=== PATIENT | male | born 1960 | race Caucasian/White ===

== ENCOUNTER 2024-08-29 06:29 | Day surgery (SDC) | payer OTHER, SELFPAY ==
--- OUTSIDE RECORDS SUMMARY | 2024-08-11 11:32 | XMS_ITS | Data Portability ---
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 Name Role Phone KATJA ELLIS Primary Care Provider JEANETTE DASH Prepper ÁLVARO BENITEZ Lute Packer Or Applier Assessment Encounter Date Assessment Date Assessment LastModified by Organization Details LastModified Time 12/28/2020 12/28/2020 Type 2 diabetes mellitus with peripheral neuropathy, Resolved ulcer left foot [email or web address] Not available 12/28/2020 09:18:02 08/02/2024 08/02/2024 Type 2 diabetes mellitus with peripheral neuropathy, Resolved ulcer right foot [email or web address] Not available 08/02/2024 10:04:13 Plan of Treatment Reminders Order Date Submit Date Provider Last Modified By Organization Details Last Modified Time Details Appointments LAB Follow-Up 2024 08:05A M [facility] Lab Not available Not available Not available Medical Managemen t 15 2024 09:30A M Katja Ellis MD Not available Not available Not available Wellness Visit 30 2025 03:00P M Katja Ellis MD Not available Not available Not available Lab HbA1c (hemoglob in A1c), blood 2024 025 [facility], [address] [place] [address], [id number], 07/20/2024 10:25:59 lipid panel, serum 2024 025 [facility], [address] [place] [address], [id number], 07/20/2024 12:12:57 BMP, serum or plasma 2024 025 [facility], [address] [facility], [place], [address], 07/20/2024 12:12:56 Referral None recorded. Procedures colonosco py procedure (PROC) [email or web address] [facility], [address] [place], [address], 03/26/2022 16:58:32 Surgeries None recorded. Imaging XR, chest 2022 023 [facility] (Imaging), [address] , [place], [address], 03/26/2022 16:57:49 exercise stress test - 6'1 , 254lbs, no pacer, pt cleared to hold Atenolol REYNOSO, diabetic 2022 023 [email or web address] Not available 03/28/2022 11:09:14 US, echocardi ogram - 6'1 , 254lbs, no pacer REYNOSO , Diabetic 2022 023 LILLY Not available 11/02/2022 14:27:52 Medication Orders Trulicity 3 mg/0.5 mL subcutane ous pen injector 2024 025 [facility]/Pharmacy #[id number], [address] [place], [address], 07/27/2024 11:19:59 Trulicity 4.5 mg/0.5 mL subcutane ous pen injector 2024 025 [facility]/Pharmacy #[id number], [address] [place] [address], [address], [address], 07/27/2024 11:19:58 Trulicity 0.75 mg/0.5 mL subcutane ous pen injector 2024 025 [facility]/Pharmacy #[id number], [address] [place], [address], 05/17/2024 16:25:28 atorvasta tin 40 mg tablet 2024 025 LILLY [facility], [address], [address], [place], [place], [id number], 04/20/2024 08:31:45 Humalog Mix 75-25 KwikPen U-100 insulin 100 unit/mL subcutane ous pen 2024 025 LILLY [facility], [address], [address], [place], [place], [id number], 04/20/2024 08:31:44 metformin 500 mg tablet 2024 025 LILLY [facility], [address], [address], [place], [place], [id number], 04/20/2024 08:31:46 atenolol 50 mg tablet 2024 025 SOMERS [facility], [address], [address], [place], [place], [id number], 04/20/2024 08:31:44 Humalog Mix 75-25 KwikPen U-100 insulin 100 unit/mL subcutane ous pen 2022 023 SOMERS [facility], [address], [address], [place], [place], [id number], 03/26/2022 15:42:51 Trulicity 1.5 mg/0.5 mL subcutane ous pen injector 2022 023 [facility], [address], [address], [place], [place], [id number], 04/20/2024 08:12:06 Patient TargetsNo targets recorded. Patient Instructions Encounter Date Encounter Id Patient Instructions Last Modified By Organization Details Last Modified Time 12/28/2020 [id number] Patient to continue to monitor for recurrence of ulcer and return as necessary. [email or web address] Not available 12/28/2020 09:19:30 03/26/2022 [id number] Well Visit 50 to 65: Care Instructions frotino Not available 03/26/2022 15:42:48 Prostate Cancer Screening using PSA was discussed. The U.S. Preventive Services Task Force advises not to make a PSA test a part of the standard exam for men ages 55-69. Instead they recommend the uncertainties about the test be discussed and ordered only if a patient still wants it. Over their lifetimes as many as 50% or more of men will develop prostate cancer but only 2% of men will of prostate cancer. For men who chose to be screened for prostate cancer if 1000 men are screened with a psa test over a 15 year period there might be 1-2 deaths prevented however 235 men will have a biopsy with risk of infection, bleeding and Pain, 100 men will have their prostate removed by surgery or radiation treatments and 60-70 of those will suffer incontinence or impotence. There is also the risk of anesthesia or radiation complications. For men over 70 prostate cancer screening offered no benefit and risked pain, worry, expense and possibly shorter life expectancy. Not available 03/26/2022 10:29:28 08/02/2024 [id number] Patient to contact the office if symptoms of swelling or drainage are experienced. [email or web address] Not available 08/02/2024 10:05:07 Reason for Referral None Reported. Results Created Date Observation Date Name Description Value Unit Range Abnormal Flag Note LastModifiedBy Organization Detail LastModifiedTime 12/06/19 21 12/05/2020 HGB A1C hemoglobin A1C 9.4 % 4.8-6. 0 high Goal: <7% in Patie nts with Diabe kg An A1c betwe en 5.7-6 .4% is ident ified as pre-d iabet es and sugge sts risk for progr essio n to diabe kg Two a1c value s of 6.5% or highe r is consi stent with a diagn osis of diabe kg but may need furth er confi rmati on Not Available [address], [place], [address], 12/05/2020 09:52:06 10/20/20 21 12/05/2020 HGB A1C estimated average glucose 223.1 mg/dL Not Available [address], [address], 12/05/2020 09:52:06 12/06/19 21 12/05/2020 BASIC METAB OLIC PANEL glucose 229 mg/dL 70-100 high Not Available [address], [address], 12/05/2020 14:15:13 12/06/19 21 12/05/2020 BASIC METAB OLIC PANEL BUN 14 mg/dL 7-18 Not Available [address], [address], 12/05/2020 14:15:13 12/06/19 21 12/05/2020 BASIC METAB OLIC PANEL creatinine 1.1 mg/dL 0.8-1. 3 Not Available [address], [address], 12/05/2020 14:15:13 12/06/19 21 12/05/2020 BASIC METAB OLIC PANEL B/C 12.7 ratio Not Available [address], [address], 12/05/2020 14:15:13 12/06/19 21 12/05/2020 BASIC METAB OLIC PANEL GFR 72.8 mL/mi n Recom octavio d GFR by the Natio nal Kidne y Found ation >60 mL/mi n/1.7 3m2 - Darlyn l <60 mL/mi n/1.7 3m2 - Chron ic Kidne y Disea se <15 mL/mi n/1.7 3m2 - Kidne y Failu re Not Available [address], [address], 12/05/2020 14:15:13 12/06/19 21 12/05/2020 BASIC METAB OLIC PANEL sodium 139 mmol/ L 136-14 5 Not Available [address], [address], 12/05/2020 14:15:13 12/06/19 21 12/05/2020 BASIC METAB OLIC PANEL potassium 4.5 mmol/ L 3.5-5. 1 Not Available [address], [address], 12/05/2020 14:15:13 12/06/19 21 12/05/2020 BASIC METAB OLIC PANEL chloride 102 mmol/ L 96-107 Not Available [address], [address], 12/05/2020 14:15:13 12/06/19 21 12/05/2020 BASIC METAB OLIC PANEL anion gap 14.2 5.0-15 .0 Not Available [address], [address], 12/05/2020 14:15:13 12/06/19 21 12/05/2020 BASIC METAB OLIC PANEL CO2 23 mmol/ L 21-32 Not Available [address], [address], 12/05/2020 14:15:13 12/06/19 21 12/05/2020 BASIC METAB OLIC PANEL calcium 9.0 mg/dL 8.5-10 .3 Not Available [address], [address], 12/05/2020 14:15:13 12/06/19 21 12/05/2020 LIPID PANEL cholesterol 138 mg/dL <200 mg/dl Meka able 200-2 39 mg/dl Borde rline High >240 mg/dl High Not Available [address], [address], 12/05/2020 14:15:14 12/06/19 21 12/05/2020 LIPID PANEL triglyceride s 199 mg/dL <150 mg/dL Darlyn l 150-1 99 mg/dL Borde rline High 200-4 99 mg/dL High >500 mg/dL Very High Not Available [address], [address], 12/05/2020 14:15:14 12/06/19 21 12/05/2020 LIPID PANEL direct HDL 36 mg/dL <40 mg/dl - Major Risk for CHD >60 mg/dl - Negat paco Risk for CHD Not Available [address], [address], 12/05/2020 14:15:14 12/06/19 21 12/05/2020 LDL - CALCU LATED LDL - calculated 62.2 RISK CATEG ORY LDL GOAL _ CHD or CHD Risk Equiv alent s <100 mg/dl (10-y ear risk >20%) 2+ Risk Facto rs <130 mg/dl (10-y ear risk <= 20%) 0-1 Risk Facto r <160 mg[facility] with 0-1 risk facto r have a 10 year risk <10%, thus 10 year risk asses ment in peopl e with 0-1 risk facto r is not neces lila. Not Available [address], [address], 12/05/2020 14:15:15 03/19/19 23 03/19/2022 HGB A1C hemoglobin A1C 11.5 % 4.8-6. 0 high Goal: <7% in Patie nts with Diabe kg An A1c betwe en 5.7-6 .4% is ident ified as pre-d iabet es and sugge sts risk for progr essio n to diabe kg Two a1c value s of 6.5% or highe r is consi stent with a diagn osis of diabe kg but may need furth er confi rmati on Not Available [address], [address], 03/19/2022 09:20:54 03/19/1903/19/2022 HGB A1C estimated average glucose 283.4 mg/dL Not Available [address], [address], 03/19/2022 09:20:54 03/19/19 23 03/19/2022 MICRO ALBUM IN/CR EATIN INE RATIO PANEL , URINE microalbumin 112.1 mg/L 1.3-20 .0 high VERD= Verif ied by Dilut ion. Not Available [address], [address], 03/19/2022 11:59:00 03/19/19 23 03/19/2022 MICRO ALBUM IN/CR EATIN INE RATIO PANEL , URINE creatinine urine 250.8 mg/dL 30.0-1 25.0 high Not Available [address], [address], 03/19/2022 11:59:00 03/19/19 23 03/19/2022 MICRO ALBUM IN/CR EATIN INE RATIO PANEL , URINE microalb/cre at ratio 44.7 mg/g_ creat 0.0-29 .0 high Not Available [address], [address], 03/19/2022 11:59:00 03/19/19 23 03/19/2022 BASIC METAB OLIC PANEL glucose 235 mg/dL 70-100 high Not Available [address], [address], 03/19/2022 12:15:15 03/19/19 23 03/19/2022 BASIC METAB OLIC PANEL BUN 21 mg/dL 7-18 high Not Available [address], [address], 03/19/2022 12:15:15 03/19/19 23 03/19/2022 BASIC METAB OLIC PANEL creatinine 1.2 mg/dL 0.8-1. 3 Not Available [address], [address], 03/19/2022 12:15:15 03/19/19 23 03/19/2022 BASIC METAB OLIC PANEL B/C 17.5 ratio Not Available [address], [address], 03/19/2022 12:15:15 03/19/19 23 03/19/2022 BASIC METAB OLIC PANEL GFR >=60ML /MIN mL/mi n normal >=60m L/min - Darlyn l or midly reduc ed <60mL /min- Decre ased kidne y funct ion <15mL /min - Kidne y failu re [facility] calcu lates estim ated Glome rular Filtr ation Rate (eGFR ) using the Chron ic Kidne y Disea se Epide miolo gy Colla borat ion (CKD- EPI) Equat ion (Ciara hurd et. al 2020) as recom octavio d by the Natio nal Kidne y Found ation . eGFR is based on age, serum creat inine , and sex. CKD-E PI does not calcu late eGFR by race, does not apply to child ector (age <18 years ), and shoul d not be used in pregn gloria. Not Available [address], [address], 03/19/2022 12:15:15 03/19/1903/19/2022 BASIC METAB OLIC PANEL sodium 136 mmol/ L 136-14 5 Not Available [address], [address], 03/19/2022 12:15:15 03/19/19 23 03/19/2022 BASIC METAB OLIC PANEL potassium 4.3 mmol/ L 3.5-5. 1 Not Available [address], [address], 03/19/2022 12:15:15 03/19/19 23 03/19/2022 BASIC METAB OLIC PANEL chloride 101 mmol/ L 96-107 Not Available [address], [address], 03/19/2022 12:15:15 03/19/19 23 03/19/2022 BASIC METAB OLIC PANEL anion gap 7.0 5.0-15 .0 Not Available [address], [address], 03/19/2022 12:15:15 03/19/19 23 03/19/2022 BASIC METAB OLIC PANEL CO2 28 mmol/ L 21-32 Not Available [address], [address], 03/19/2022 12:15:15 03/19/19 23 03/19/2022 BASIC METAB OLIC PANEL calcium 9.8 mg/dL 8.5-10 .3 Not Available [address], [address], 03/19/2022 12:15:15 03/19/19 23 03/19/2022 LIPID PANEL cholesterol 240 mg/dL <200 mg/dl Meka able 200-2 39 mg/dl Borde rline High >240 mg/dl High Not Available [address], [address], 03/19/2022 12:15:16 03/19/1903/19/2022 LIPID PANEL triglyceride s 528 mg/dL high LIPS= Speci men Sligh tly Lipem ic. Chem Resul ts may be effec tad. <150 mg/dL Darlyn l 150-1 99 mg/dL Borde rline High 200-4 99 mg/dL High >500 mg/dL Very High Not Available [address], [address], 03/19/2022 12:15:16 03/19/19 23 03/19/2022 LIPID PANEL direct HDL 38 mg/dL <40 mg/dl - Major Risk for CHD >60 mg/dl - Negat paco Risk for CHD Not Available [address], [address], 03/19/2022 12:15:16 03/19/19 23 03/19/2022 DIREC T LDL direct LDL 102 mg/dL RISK CATEG ORY LDL GOAL _ CHD or CHD Risk Equiv alent s <100 mg/dl (10-y ear risk >20%) 2+ Risk Facto rs <130 mg/dl (10-y ear risk <= 20%) 0-1 Risk Facto r <160 mg/dl Almo st all peopl e with 0-1 risk facto r have a 10 year risk <10%, thus 10 year risk asses ment in peopl e with 0-1 risk facto r is not necdemetria lila. Not Available [address], [address], 03/19/2022 12:44:20 10/18/19 23 10/17/2022 POC GLU POC glu 199 70 - 100 high Not Available [facility] [address] [place] [address], [address], 10/17/2022 10:15:15 07/21/19 25 07/20/2024 HGB A1C hemoglobin A1C 11.0 % 4.8-6. 0 high Goal: <7% in Patie nts with Diabe kg An A1c betwe en 5.7-6 .4% is ident ified as pre-d iabet es and sugge sts risk for progr essio n to diabe kg Two a1c value s of 6.5% or highe r is consi stent with a diagn osis of diabe kg but may need furth er confi rmati on Not Available [address], [address], 07/20/2024 10:25:59 07/21/19 25 07/20/2024 HGB A1C estimated average glucose 269.0 mg/dL Not Available [address], [address], 07/20/2024 10:25:59 07/21/19 25 07/20/2024 BASIC METAB OLIC PANEL glucose 209 mg/dL 70-100 high Not Available [address], [address], 07/20/2024 12:12:56 07/21/1907/20/2024 BASIC METAB OLIC PANEL BUN 19 mg/dL 7-18 high Not Available [address], [address], 07/20/2024 12:12:56 07/21/1907/20/2024 BASIC METAB OLIC PANEL creatinine 1.1 mg/dL 0.8-1. 3 Not Available [address], [address], 07/20/2024 12:12:56 07/21/1907/20/2024 BASIC METAB OLIC PANEL B/C 17.3 ratio Not Available [address], [address], 07/20/2024 12:12:56 07/21/1907/20/2024 BASIC METAB OLIC PANEL GFR >=60ML /MIN mL/mi n normal >=60m L/min - Darlyn l or midly reduc ed <60mL /min- Decre ased kidne y funct ion <15mL /min - Kidne y failu re [facility] calcu lates estim ated Glome rular Filtr ation Rate (eGFR ) using the Chron ic Kidne y Disea se Epide miolo gy Colla borat ion (CKD- EPI) Equat ion (Ciara r et. al 2020) as recom octavio d by the Natio nal Kidne y Found ation . eGFR is based on age, serum creat inine , and sex. CKD-E PI does not calcu late eGFR by race, does not apply to child ector (age <18 years ), and shoul d not be used in pregn gloria. Not Available [address], [address], 07/20/2024 12:12:56 07/21/1907/20/2024 BASIC METAB OLIC PANEL sodium 138 mmol/ L 136-14 5 Not Available [address], [address], 07/20/2024 12:12:56 07/21/1907/20/2024 BASIC METAB OLIC PANEL potassium 4.5 mmol/ L 3.5-5. 1 Not Available [address], [address], 07/20/2024 12:12:56 07/21/19 25 07/20/2024 BASIC METAB OLIC PANEL chloride 102 mmol/ L 96-107 Not Available [address], [address], 07/20/2024 12:12:56 07/21/1907/20/2024 BASIC METAB OLIC PANEL anion gap 10.4 5.0-15 .0 Not Available [address], [address], 07/20/2024 12:12:56 07/21/1907/20/2024 BASIC METAB OLIC PANEL CO2 26 mmol/ L 21-32 Not Available [address], [address], 07/20/2024 12:12:56 07/21/1907/20/2024 BASIC METAB OLIC PANEL calcium 9.4 mg/dL 8.5-10 .3 Not Available [address], [address], 07/20/2024 12:12:56 07/21/1907/20/2024 LIPID PANEL cholesterol 161 mg/dL <200 mg/dl Meka able 200-2 39 mg/dl Borde rline High >240 mg/dl High Not Available [address], [address], 07/20/2024 12:12:57 07/21/19 25 07/20/2024 LIPID PANEL triglyceride s 228 mg/dL <150 mg/dL Darlyn l 150-1 99 mg/dL Borde rline High 200-4 99 mg/dL High >500 mg/dL Very High Not Available [address], [address], 07/20/2024 12:12:57 07/21/1907/20/2024 LIPID PANEL direct HDL 39 mg/dL <40 mg/dl - Major Risk for CHD >60 mg/dl - Negat paco Risk for CHD Not Available [address], [address], 07/20/2024 12:12:57 07/21/1907/20/2024 LDL - CALCU LATED LDL - calculated 76 RISK CATEG ORY LDL GOAL _ CHD or CHD Risk Equiv alent s <100 mg/dl (10-y ear risk >20%) 2+ Risk Facto rs <130 mg/dl (10-y ear risk <= 20%) 0-1 Risk Facto r <160 mg/dl Almo st all peopl e with 0-1 risk facto r have a 10 year risk <10%, thus 10 year risk asses ment in peopl e with 0-1 risk facto r is not neces lila. Not Available [address], [address], 07/20/2024 12:12:58 03/26/1903/26/2022 XR, chest CLINIC AL HISTOR Y: Dyspne a on exerti on. TECHNI QUE: Fronta l view and latera l view of the chest obtain ed. COMPAR LAURA: None. FINDIN GS: The heart is normal in size and config uratio n.Ther e is no hilar or medias tinal enlarg ement. There is no focal lung consol idatio n or infilt rate. The bony thorax is intact . IMPRES TIANA: No acute diseas e. Readin g Physic sasha: Amaury Fox ms [facility] (Imaging) [address], [place], [address], 03/27/2022 09:09:26 04/09/19 23 04/08/2022 exerc ise stres s test No observ ation record ed. LILLY [facility] [address] [place], [address], 2022 07:17:01 10/30/19 23 04/30/2022 , echoc ardio gram No observ ation record ed. LILLY Tran [facility] - Stat [address] [place], [address], 11/02/2022 14:27:52 Result Notes None recorded. Procedures Surgical History Date Name Laterality Status Provider Name and Address Organization Details Recorded Time 3 Gopi - Colonoscopy completed Nabeel Nguyễn MD [address] [place] [address], [phone], [facility] 10/17/2022 11:17:50 Imaging Results None recorded. Procedure Notes None recorded. Medical Equipment None Reported. Allergies Allergen ID Allergen Name Allergen Category Reaction Reaction Severity Criticality Documentation Date Start Date Code Code System Note Provider Name and Address Organization Details Recorded Time [id number] Zestril medicatio n cough Not available Not available 10/15/2022 2 RxNorm Kiara lee RN [facility], [facility] 3 15:57:53 Medications Name Sig Start Date Stop Date Status Note LastModified by Organization Details LastModified Time amoxicilli n 500 mg capsule 12/10 completed Not Available Not Available Not Available atorvastat in 40 mg tablet 1 tablet every day active Not Available Not Available No t Available metformin 500 mg tablet TAKE 2 TABLETS TWICE A DAY 2024 active Not Available Not Available Not Avai lable triazolam 0.25 mg tablet 07/09 completed not using 03/30/20 -sk,not taking RITA Not Available Not Available Not Available pravastati n 40 mg tablet TAKE 1 TABLET DAILY (STOP GEMFIBRO ZIL) 07/09 completed not using 06/27/20 as Not Available Not Available Not Available ibuprofen 800 mg tablet TAKE 1 TABLET BY MOUTH EVERY 6 TO 8 HOURS WITH FOOD NEEDED 12/10 completed Not Available Not Available Not Available benzonatat e 200 mg capsule TAKE 1 CAPSULE BY MOUTH THREE TIMES A DAY FOR COUGH FOR 7 DAYS 07/27 completed Not Available Not Available Not Available glipizide 10 mg tablet active Not Available Not Available Not Available prednisone 20 mg tablet TAKE 2 TABLETS BY MOUTH EVERY MORNING FOR 3 DAYS 07/27 completed Not Available Not Available Not Available Lantus U-100 Insulin 100 unit/mL subcutaneo us solution INJECT 50 UNITS SUBCUTAN EOUSLY DAILY active Not Available Not Available No t Available penicillin V potassium 500 mg tablet TAKE 1 TABLET BY MOUTH 4 TIMES A DAY 12/10 completed Not Available Not Available Not Available acetaminop hen 300 mg-codeine 30 mg tablet 03/30 completed Not Available Not Available Not Available prochlorpe razine maleate 10 mg tablet active for colo Not Available Not Available Not Available ciprofloxa magui 500 mg tablet Take 1 tablet every 12 hours by oral route for 7 days. 12/10 completed Not Available Not Available Not Available sildenafil 100 mg tablet Take 1 tablet every day by oral route as needed. 10/03 completed not using 03/30/20 -sk, not taking 1 RITA Not Available Not Available Not Available amoxicilli n 500 mg tablet 09/10 completed Not Available Not Available Not Available terbinafin e HCl 250 mg tablet Take 1 tablet every day by oral route. 09/10 completed Not Available Not Available Not Available gemfibrozi l 600 mg tablet 1 BID 12/10 completed Not Available Not Available Not Available hydrocodon e 7.5 mg-acetami nophen 325 mg tablet 07/09 completed not taking 1 RITA Not Available Not Available Not Available cephalexin 500 mg capsule TAKE 1 CAPSULE (ORAL) 3 TIMES PER DAY FOR 10 DAYS FOR INFECTIO N 03/26 completed Not Available Not Available Not Available oseltamivi r 75 mg capsule TAKE 1 CAPSULE BY MOUTH EVERY 12 HOURS FOR 5 DAYS 03/26 completed Not Available Not Available Not Available metformin 1,000 mg tablet TAKE 1 TABLET TWICE A DAY active Not Available Not Available No t Available alcohol swabs USE DAILY DIRECTED active Not Available Not Available No t Available mupirocin 2 % topical ointment APPLY A SMALL AMOUNT TO THE AFFECTED AREA BY TOPICAL ROUTE UP TO 3 TIMES PER DAY 04/20 completed Not Available Not Available Not Available ibuprofen 600 mg tablet 12/10 completed Not Available Not Available Not Available Cipro HC 0.2 %-1 % ear drops,susp ension INSTILL 3 DROPS INTO AFFECTED EARS EVERY 12 HOURS FOR 7 DAYS 12/10 completed Not Available Not Available Not Available albuterol sulfate HFA 90 mcg/actuat ion aerosol inhaler INHALE 2 PUFFS EVERY 4 TO 6 HOURS FOR SHORTNES S OF BREATH FOR 7 DAYS active Not Available Not Available No t Available fluticason e propionate 50 mcg/actuat ion nasal spray,susp ension USE 1 SPRAYS INTO EACH NOSTRIL TWICE A DAY FOR 90 DAYS active Not Available Not Available No t Available atenolol 50 mg tablet Take 1 tablet daily active Not Available Not Available No t Available diazepam 5 mg tablet 09/10 completed Not Available Not Available Not Available oxycodone 5 mg tablet active Not Available Not Available Not Available metformin ER 1,000 mg tablet,ext ended release 24hr (osmotic) TAKE 2 TABLETS DAILY 09/09 completed Not Available Not Available Not Available hydrocodon e 7.5 mg-acetami nophen 300 mg tablet 09/10 completed Not Available Not Available Not Available BD Insulin Syringe Ult-Fine II 1 mL 31 gauge x 5/16 USE DAILY WITH LANTUS active Not Available Not Available No t Available BD Ultra-Fine Short Pen Needle 31 gauge x 5/16 USE TWO TIMES A DAY WITH SOLOSTAR active Not Available Not Available No t Available peg 3350-elect rolytes 236 gram-22.74 gram-6.74 gram-5.86 gram solution active for colo Not Available Not Available Not Available Lantus Solostar U-100 Insulin 100 unit/mL (3 mL) subcutaneo us pen INJECT 60 TO 80 UNITS DAILY 09/09 completed 90. Not Available Not Available Not Available Humalog Mix 75-25 KwikPen U-100 insulin 100 unit/mL subcutaneo us pen INJECT 70 UNITS AM, 40 UNITS PM AND TITRATE UP BY 4 UNITS EVERY WEEK UNTIL AT GOAL or 120 units 2024 active Not Available Not Available Not Avai lable OneTouch Verio test strips TEST TWICE A DAY active Not Available Not Available No t Available BD Insulin Syringe Ultra-Fine 1 mL 31 gauge x 5/16 active Not Available Not Available Not Available BD Insulin Syringe Ultra-Fine 0.5 mL 31 gauge x 5/16 USE DAILY WITH LANTUS active Not Available Not Available No t Available Accu-Chek Compact Plus Test Strips Use twice a day 09/09 completed Not Available Not Available Not Available Trulicity 1.5 mg/0.5 mL subcutaneo us pen injector INJECT 0.5 ML SUBCUTAN EOUSLY EVERY WEEK active Not Available Not Available No t Available Trulicity 0.75 mg/0.5 mL subcutaneo us pen injector INJECT 0.5 ML EVERY WEEK, THEN WILL TITRATE UP NEXT MONTH active Not Available Not Available No t Available Clenpiq 10 mg-3.5 gram-12 gram/160 mL oral solution USE DIRECTED 04/20 completed Not Available Not Available Not Available OneTouch Verio Reflect Meter TEST TWICE A DAY active Not Available Not Available No t Available Trulicity 3 mg/0.5 mL subcutaneo us pen injector Inject 0.5 mL every week by subcutan eous route. 2024 active Not Available Not Available Not Avai lable Trulicity 4.5 mg/0.5 mL subcutaneo us pen injector Inject 0.5 mL every week by subcutan eous route. 2024 active Not Available Not Available Not Avai lable Vitals None Recorded Social History Question Answer Notes LastModified by Organizat ion Details LastModified Time Do You Wear A Helmet When Biking? Yes Information not available 09/01/2014 What Is Your Level Of Caffeine Consumption? Occasional Information not available 09/01/2014 How Much Tobacco Do You Chew? None Information not available 09/01/2014 What Type Of Diet Are You Following? REGULAR Information not available 09/01/2014 Which Illicit Or Recreational Drugs Have You Used? 0 Information not available 09/01/2014 How Many Days In The Past Year Have You Had A Heavy Drinking Consumption (4+ Female, 5+ Male)? 1 Information not available 09/01/2014 Are There Any Guns Present In Your Home? No Information not available 09/01/2014 Live Alone Or With Others? Alone Information not available 09/01/2014 Patient Has Health Care Proxy Signed And In Chart Yes [email or web address] Information not available 09/13/2018 DM Disease Process Pre-grasps [place] Reviewed Type 1 Vs Type 2 Diabetes Information not available 02/27/2015 Nutrition Pre-needs Review Pt. Not Interested In Counting Carbs, He Is Limiting His Carbohydrates . Information not available 02/27/2015 Physical Activity Pre-grasps [place] Information not available 02/27/2015 Medications Pre-needs Review Information not available 02/27/2015 Monitoring Pre-needs Review No Problems With His Meter. Information not available 02/27/2015 Acute Complications Pre-grasps [place] Information not available 02/27/2015 Chronic Complications Pre-grasps [place] Last Saw Eye Doctor In May Or June, Not Seeing A Dentist, Information not available 02/27/2015 Coping Pre-grasps [place] Information not available 02/27/2015 Behavior Change Pre-grasps [place] Information not available 02/27/2015 DSME Plan Goal Monitoring: Alternate Testing, 2 Hours After Meals, In Addition To Fasting. Information not available 02/27/2015 DSME Plan Goal Success Initiated Information not available 02/27/2015 DSME Plan Goal Evaluation: 02/27/2015 Information not available 02/27/2015 DSME 2nd Goal Being Active Continue To Walk And Bike Ride 2-4x/week Information not available 02/27/2015 DSME 2nd Goal Success Initiated Information not available 02/27/2015 DSME 2nd Goal Evaluation: 02/27/2015 Information not available 02/27/2015 DSME Plan Initiated: 02/27/2015 DSME Dates Seen: 02/27/15 Information not available 02/27/2015 DSME Plan Status In Progress - Infor mation not available 02/27/2015 Marital Status [facility] Information not available 06/03/2013 Mosquito Repellent Used Routinely Yes Information not available 09/01/2014 What Was The Date Of Your Most Recent Tobacco Screening? 07/27/2024 Information not available 07/27/2024 How Many Children Do You Have? 2 Jada(25- (son{g-son} Fran Ceja, Dawit-dtr), Gilles -Spina Bifida- Does Sled Hockey( 25,17) [address] [facility] Information not available 06/03/2013 What Is Your Relationship Status? Nancy 2019 [email or web address] Information not available 03/26/2022 Seat Belts Used Routinely Yes Information not available 09/01/2014 Smoke Alarm In Home Yes Information not available 09/01/2014 How Much Tobacco Do You Smoke? No [email or web address] Information not available 04/23/2020 General Stress Level Medium Information not available 09/01/2014 Do You Use Sunscreen Routinely? Yes Information not available 09/01/2014 Sex: Male Functional Status Question Answer Note LastModified by Organization Details LastModified Time Do you use any illicit or recreational drugs? No 10/12/2020 KM Information not available 10/12/2020 What is your level of alcohol consumption? Occasional 10/12/2020 KM Information not available 10/12/2020 Do you or have you ever used smokeless tobacco? 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 [place] Information not available 12/09/2017 Do you or have you ever used e-cigarettes or vape? Never used electronic cigarettes [email or web address] Information not available 04/23/2020 Mental Status None recorded. Family History Relationship Description Onset Age of this Age Resolved Age Notes LastModified by Organization Details LastModified Time Brother Benign hypertension [facility] Not available 14:29:52 Mother [facility] 2013 14:29:52 Mother Mal[facility] 2013 14:29:52 Mother Interstitial lung [facility] Not available 14:29:52 Father Myocardial [facility] Not available 06/03 14:29:52 Father [facility] Not available 2013 14:29:52 Son Spina bifida [facility] Not avai labmike 10/03/2020 16:58:12 Medical History Condition Response HEMATOLOGIC Y Diabetes Type II Y Hypertension Y Colon Polyps Y Past Encounters Encounter ID Performer Location Encounter Start Date Encounter Closed Date Diagnosis/Indication Diagnosis SNOMED-CT Code Diagnosis ICD10 Code Diagnosis Note [id number] Katja Ellis MD , [facility], OFFICE [address] [facility] [place] [address] 06/03/2013 13:32:13 06/03/2013 14:44:02 [id number] Katja Ellis MD , [facility], OFFICE [address] [facility] [place] [address] 07/01/2013 14:39:27 07/01/2013 15:21:14 [id number] Katja Ellis MD , [facility], OFFICE [address] [place] [address] [place] [address] 07/29/2013 15:10:03 07/29/2013 15:40:01 [id number] Katja Ellis MD , [facility], OFFICE [address] [facility] [place] [address] 09/07/2013 15:48:48 09/07/2013 16:39:09 [id number] Katja Ellis MD , [facility], OFFICE [address] [place] [address] [place] [address] 10/25/2013 15:40:42 10/25/2013 16:23:22 [id number] Ktaja Ellis MD , [facility], OFFICE [address] [place] [address] [place] [address] 09/01/2014 07:56:31 09/01/2014 09:15:36 [id number] Nabeel Nguyễn MD [facility], [address] [address] 12/05/2014 08:25:55 12/05/2014 13:30:05 [id number] Katja Ellis MD , [facility], OFFICE [address] [place] [address] [place] [address] 02/21/2015 08:08:59 02/21/2015 08:52:46 [id number] Adamaris Vanegas RN, BSN, [facility] , [facility] [address] [facility] [place] [facility] [place] [address] 02/27/2015 09:50:33 02/27/2015 10:53:09 [id number] Alycia Garcia , [facility], OFFICE [address] [facility] [place] [facility] [place] [address] 06/06/2015 09:46:48 06/06/2015 11:25:04 [id number] Adalberto Meyer MD , [facility], OFFICE [address] [facility] [place] [facility] [place] [address] 06/07/2015 16:49:48 06/08/2015 08:36:13 [id number] Katja Ellis MD , [facility], OFFICE [address] [place] [address] [place] [address] 12/10/2016 16:18:39 12/11/2016 10:53:09 [id number] Katja Elils MD , [facility], OFFICE [address] [place] [address] [place] [address] 09/09/2017 14:57:30 09/09/2017 15:52:28 [id number] Katja Ellis MD , [facility], OFFICE [address] [place] [address] [place] [address] 12/09/2017 15:56:53 12/09/2017 16:31:15 [id number] Katja Ellis MD , [facility], OFFICE [address] [place] [address] [place] [address] 09/10/2018 13:21:12 09/10/2018 14:21:34 [id number] Esdras Garg MD , [facility], OFFICE [address] [place] [address] 12/24/2019 10:16:31 12/26/2019 10:11:48 [id number] Katja Ellis MD , [facility], OFFICE [address] [place] [address] [place] [address] 03/30/2020 13:40:11 03/30/2020 16:30:40 [id number] MD HARMONY Prasad, [facility], OFFICE [address] [place] [address] [place] [address] 04/23/2020 09:55:53 04/25/2020 11:05:12 [id number] Katja Ellis MD , [facility], OFFICE [address] [place] [address] 06/27/2020 07:49:47 06/27/2020 08:46:30 [id number] Álvaro Benitez DPM Podiatry, [facility] [address] [place] [address] 07/05/2020 08:03:53 07/23/2020 10:54:06 [id number] NAA CarballoM Podiatry, [address] [address] 07/09/2020 10:03:46 07/09/2020 10:31:28 [id number] Álvaro Benitez DPM Podiatry, [address] [address] 08/03/2020 10:43:34 08/03/2020 11:24:38 [id number] Álvaro Benitez DPM Podiatry, [address] [address] 08/27/2020 10:11:58 08/27/2020 11:03:20 [id number] Katja Ellis MD , [facility], OFFICE [address] [place] [address] 10/03/2020 16:16:24 10/03/2020 17:07:21 [id number] Álvaro Benitez DPM Podiatry, [address] [address] 10/12/2020 09:30:33 10/12/2020 16:51:58 [id number] Katja Ellis MD , [facility], OFFICE [address] [place] [address] 12/19/2020 14:39:25 12/25/2020 10:03:43 [id number] Alexis Santana MD Podiatry, [address] [address] 12/28/2020 09:12:07 12/28/2020 10:01:07 [id number] MD HARMONY Prasad, [facility], OFFICE [address] [place] [address] 03/26/2022 14:44:50 03/26/2022 15:47:28 [id number] Nabeel Nguyễn MD Endoscopy , [facility] [address] [place] [address] 10/17/2022 09:52:51 10/17/2022 13:31:32 [id number] Katja Ellis MD , [facility], OFFICE [address] [place] [address] 04/20/2024 07:43:01 04/20/2024 08:35:40 [id number] Katja Ellis MD , [facility], OFFICE [address] [place] [address] 07/27/2024 10:41:44 07/27/2024 11:22:22 [id number] Jennifer Judd MD Podiatry, [address] [address] 08/02/2024 09:18:29 08/02/2024 10:30:33 Health Concerns Section Related Observation LastModified by Organization Detai ls LastModified Time None Recorded Concern Status LastModified by Organization Details LastModified Time None Recorded Advance Directives Directive None Recorded Payers Insurance Date Sequence Insurance Name Policy Number Policy Finney Covered Member ID Finney Member ID Guarantor Name 12/24/2020 1 [facility] ([place]) [id number] Tray Viet Leonides [id number] Tray Coyle 12/24/2020 1 [facility] [facility] [id number] Tray Viet Leonides [id number] Tray Coyle 08/02/[address] [facility] [id number] Tray Coyle [id number] Tray Coyle
[2024-08-23 14:27] VITALS: BMI 32.3
--- NOTE | 2024-08-26 11:46 | HO.ANESPROP2 ---
Documented by User: Lexi Das NP 08/26/24 11:46 HPI - Anesthesia Eval Consult details Narrative: 64yo M for Left Cataract Extraction IOL Insertion No previous cataract on record Anesthesia Pre-Procedure Meds Is the patient on any of the following meds?: GLP1/DPP4 PMFSH Past Medical History Medical History (Updated 08/23/24 @ 14:31 by Michelle Cheema, RN) Family history of anesthesia complication Mild aortic stenosis HTN (hypertension) Elevated cholesterol Diabetes Surgical History Surgical History (Updated 08/23/24 @ 14:31 by Michelle Cheema RN) H/O colonoscopy Hx of tonsillectomy Hx of vasectomy Hx of arthroscopic knee surgery Hx of appendectomy Social History Social History Are you a primary acute care registered nurse to a significant other at home: No Do you presently have visiting nurse or other home services: No Patient Tobacco Use Status: Never used Tobacco Use of substances other than those prescribed or required for medical reasons: No Have you been hit, kicked, punched, or otherwise hurt by someone within the past year? If so, by whom?: No Spiritual Healthcare Practices: no [facility] Practices: no Cultural Healthcare Practices: no Are you DNR?: No Advance Directives: No (states is primary contact) Advance Directives on File: No Poor oral hygiene: No Meds Allergies Allergy/AdvReac Type Severity Reaction Status Date / Time lisinopril (From Zestril) Allergy Intermediate Cough Verified 08/29/24 06:57 Home Medications ?Medication ?Instructions ?Recorded ?Confirmed ?Last Taken ?Type atenolol 50 mg tablet 50 mg PO DAILY 08/23/24 08/23/24 Unknown History atorvastatin 40 mg tablet 40 mg PO DAILY 08/23/24 08/23/24 Unknown History dulaglutide 4.5 mg/0.5 mL 4.5 mg subcut QWEEK 08/23/24 08/23/24 08/21/24 History subcutaneous pen injector (Trulicity) insulin lispro protamine-lispro 40 unit subcut QPM 08/23/24 08/23/24 Unknown History 100 unit/mL (75-25) subcutaneous pen (Humalog Mix 75-25 KwikPen) insulin lispro protamine-lispro 60 unit subcut QAM 08/23/24 08/23/24 Unknown History 100 unit/mL (75-25) subcutaneous pen (Humalog Mix 75-25 KwikPen) metformin 500 mg tablet 1,000 mg PO BID 08/23/24 08/23/24 Unknown History Exam Height,Weight and Vital Signs: Height 6 ft 2 in Weight 114.1 kg Assessment and Plan Assessment Anesthesia Assessment: Chart Reviewed Documented by User: Sung Pierce MD 08/29/24 07:25 [facility] Past Medical History Medical History (Updated 08/23/24 @ 14:31 by Michelle Cheema RN) Family history of anesthesia complication Mild aortic stenosis HTN (hypertension) Elevated cholesterol Diabetes Family History Family history of problems with anesthesia: No Surgical History Surgical History (Updated 08/23/24 @ 14:31 by Michelle Cheema RN) H/O colonoscopy Hx of tonsillectomy Hx of vasectomy Hx of arthroscopic knee surgery Hx of appendectomy History of Problems with Anesthesia: No Social History Social History Are you a primary acute care registered nurse to a significant other at home: No Do you presently have visiting nurse or other home services: No Patient Tobacco Use Status: Never used Tobacco Use of substances other than those prescribed or required for medical reasons: No Have you been hit, kicked, punched, or otherwise hurt by someone within the past year? If so, by whom?: No Spiritual Healthcare Practices: no [facility] Practices: no Cultural Healthcare Practices: no Are you DNR?: No Advance Directives: No (states is primary contact) Advance Directives on File: No Poor oral hygiene: No Meds Allergies Allergy/AdvReac Type Severity Reaction Status Date / Time lisinopril (From Zestril) Allergy Intermediate Cough Verified 08/29/24 06:57 Home Medications ?Medication ?Instructions ?Recorded ?Confirmed ?Last Taken ?Type atenolol 50 mg tablet 50 mg PO DAILY 08/23/24 08/23/24 Unknown History atorvastatin 40 mg tablet 40 mg PO DAILY 08/23/24 08/23/24 Unknown History dulaglutide 4.5 mg/0.5 mL 4.5 mg subcut QWEEK 08/23/24 08/23/24 08/21/24 History subcutaneous pen injector (Trulicity) insulin lispro protamine-lispro 40 unit subcut QPM 08/23/24 08/23/24 Unknown History 100 unit/mL (75-25) subcutaneous pen (Humalog Mix 75-25 KwikPen) insulin lispro protamine-lispro 60 unit subcut QAM 08/23/24 08/23/24 Unknown History 100 unit/mL (75-25) subcutaneous pen (Humalog Mix 75-25 KwikPen) metformin 500 mg tablet 1,000 mg PO BID 08/23/24 08/23/24 Unknown History Exam Airway Mallampati Class: III TM Dist: >3cm Neck ROM: Full Assessment and Plan Assessment Anesthesia Assessment: Anesthesia Plan Discussed Final Anesthetic Review Family History of Problems with Anesthesia: No History of Problems with Anesthesia: No NPO: Yes ASA Class: III Final Preanesthetic Review: No Changes in Pt Med Stat, Meds/Allgs Chart Reviewed, Consent Obtained/Reviewed and Anes Risks/Benef Reviewed Patient Risk: Intermediate Procedure Risk: Low Anesthetic Plan Anesthetic Plan: MAC: Disposition: Standard PACU
[2024-08-29 06:32] VITALS: BP 138/78; PULSE 87; RESP 20; TEMP 36.9; O2SAT 98
[2024-08-29 06:52] LABS: Glucose, Whole Blood 97 mg/dL (60-115)
[2024-08-29] MEDS: Tropicamide 1 % Ophth Sol 3 ML BTL 1 DROP EYE-LEFT ×3 (06:54→06:56)
[2024-08-29] MEDS: Lactated Ringers 500 ML 50 ML IV (06:54)
[2024-08-29] MEDS: Cyclopentolate 1 % Ophth Sol 2 ML DRPBTL 1 DROP EYE-LEFT ×3 (06:54→06:56)
[2024-08-29] MEDS: Phenylephrine HCL 2.5% Oph SoL 2 ML BOTTLE 1 DROP EYE-LEFT ×3 (06:55)
[2024-08-29] MEDS: Ketorolac Tromethamine 0.5% Op 5 ML DROPS 1 DROP EYE-LEFT ×3 (06:55→06:56)
[2024-08-29] MEDS: Tetracaine HCl/PF 0.5% Oph Sol 4 ML DROPS 1 DROP EYE-LEFT (06:56)
--- NOTE | 2024-08-29 07:18 | MHC.SHP ---
Pre-Procedural Eval Section A - 24 Hr Update-Section A only Date of Service: 08/29/24 The patient is an INPATIENT: No Changes since office visit: No Cold of Flu in the past 2 weeks, No New Medical Problems, No Changes in Medication and No Patient answered all questions The patient has been examined within 24 hours of the surgical procedure. The History & Physical has been completed within 30 days and I have reviewed it.: Yes Section B - Complete if H&P > 30 days Chief Complaint: Age-related nuclear cataract, left eye Allergies: Allergies Allergy/AdvReac Type Severity Reaction Status Date / Time lisinopril (From Zestril) Allergy Intermediate Cough Verified 08/29/24 06:57 Plan Diagnosis/Plan: Unchanged I have reviewed the history and physical and performed a pertinent physical examination on my patient. No changes have occurred unless specified. Time Spent With Patient Time: Total time managing care of this patient today ____ minutes.
--- NOTE | 2024-08-29 08:16 | HO.PNOPHT ---
Ophthalmology Procedure Procedure Date of Service: 08/29/24 Ophthalmology Viscoelastic: Healon Duet Dual Pack Pro Ophthalmology Lenses: IOL Acrysof MP - [id number] (24.5) Procedure Notes: PREOPERATIVE DIAGNOSIS: Decreased visual acuity left eye secondary to cataract POSTOPERATIVE DIAGNOSIS: Same PROCEDURE: Left cataract extraction with intraocular lens insertion SURGEON: Pro Serrano M.D. ANESTHESIA: Topical/MAC ESTIMATED BLOOD LOSS: None COMPLICATIONS: Damaged Optic requried a lens exchange After obtaining informed consent, the patient was brought to the operation room suite and placed in the supine position. After adequate sedation per anesthesia, topical drops of Tetracaine were given to the left eye. The eye was then prepped and draped in the usual sterile fashion. The operating room microscope was then positioned over the operative eye and a lid speculum placed. A paracentesis was created. Viscoelastic was then instilled into the anterior chamber. A three plane incision was then created temporally, utilizing a 2.85 mm keratome. Capsulotomy forceps were then utilized to create a circular tear capsulotomy. Hydrodissection and hydrodelineation were carried out until adequate mobilization of the nucleus occurred. Phacoemulsification was then utilized to remove the dense central nucleus followed by removal of the cortical material utilizing the automated aspiration irrigation unit. Viscoat elastic was instilled into the posterior capsular bag followed by placement of a posterior chamber intraocular lens without difficulty. A damaged optic was noted requiring a IOL exchangr. The lens was folded intraocularly and removed followed by placement of a new IOL.The residual Viscoat elastic was then removed utilizing the automated IA machine. The wound was check and found to be watertight. The patient tolerated the procedure well and the lid speculum was removed. Intracameral injection of Vigamox 0.1 mL followed by a subtenon injection of Kenalog-40 0.2 mL were administered. The patient will be seen in the a.m.
[2024-08-29 08:55] VITALS: BP 112/65; PULSE 79; RESP 14; TEMP 36.5; O2SAT 98
== END 2024-08-29 09:05 | disposition home or self-care (01) ==
PROVIDERS: PCP Family Medicine; Visit Provider Ophthalmology
PROC: (CPT 66985; principal; 2024-08-29 08:20)
DX: H25.12 Age-related nuclear cataract, left eye (principal); T85.29XA Other mechanical complication of intraocular lens, initial encounter; Y77.2 Prosthetic and other implants, materials and accessory ophthalmic devices associated with adverse incidents; Y92.234 Operating room of hospital as the place of occurrence of the external cause; H54.7 Unspecified visual loss
CPT/HCPCS: 66984; 66986; 82947; J2250; J3010; J3301; V2630

== ENCOUNTER 2024-10-10 06:45 | Day surgery (SDC) | payer OTHER, SELFPAY ==
[2024-08-23 14:32] VITALS: BMI 32.3
--- OUTSIDE RECORDS SUMMARY | 2024-09-01 14:26 | XMS_ITS | Data Portability ---
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 ÁLVARO BENITEZ Regroover Assessment Encounter Date Assessment Date Assessment LastModified [...] Details Appointments LAB Follow-Up 2024 08:05A M [facility] Lab Not available Not available Not available Medical Managemen t 15 2024 09:30A M Katja Ellis MD Not available Not available Not available Wellness Visit 30 2025 03:00P M Katja Ellis MD Not available Not available Not available Lab HbA1c (hemoglob in A1c), blood 2024 025 [facility], [address] [place] [address], [address], 07/20/2024 10:25:59 lipid panel, serum 2024 025 [facility], [address] [place] [address], [address], 07/20/2024 12:12:57 BMP, serum or plasma 2024 025 [facility], [address] [facility], [place], [address], 07/20/2024 12:12:56 Referral None recorded. Procedures colonosco py procedure (PROC) [email or web address] [facility], [address] [place], [address], 03/26/2022 16:58:32 Surgeries None recorded. Imaging XR, chest 2022 023 [facility] (Imaging), [address] , [place], [address], 03/26/2022 16:57:49 exercise stress test - 6'1 , 254lbs, no pacer, pt cleared to hold Atenolol REYNOSO, diabetic 2022 023 [email or web address] Not available 03/28/2022 11:09:14 US, echocardi ogram - 6'1 , 254lbs, no pacer REYNOSO , Diabetic 2022 023 LILLY Not available 11/02/2022 14:27:52 Medication Orders Trulicity 3 mg/0.5 mL subcutane ous pen injector 2024 025 [facility]/Pharmacy #[id number], [address] [place], [address], 07/27/2024 11:19:59 Trulicity 4.5 mg/0.5 mL subcutane ous pen injector 2024 025 [facility]/Pharmacy #[id number], [address] [place] [address], [address], [address], 07/27/2024 11:19:58 Trulicity 0.75 mg/0.5 mL subcutane ous pen injector 2024 025 [facility]/Pharmacy #[id number], [address] [place], [address], 05/17/2024 16:25:28 atorvasta tin 40 mg tablet 2024 025 LILLY [facility], [address], [address], [place], [place], [id number], 04/20/2024 08:31:45 Humalog Mix 75-25 KwikPen U-100 insulin 100 unit/mL subcutane ous pen 2024 025 LILLY [facility], [address], [address], [place], [place], [id number], 04/20/2024 08:31:44 metformin 500 mg tablet 2024 025 LILLY [facility], [address], [address], [place], [place], [id number], 04/20/2024 08:31:46 atenolol 50 mg tablet 2024 025 [place] [facility], [address], [address], [place], [place], [id number], 04/20/2024 08:31:44 Humalog Mix 75-25 KwikPen U-100 insulin 100 unit/mL subcutane ous pen 2022 023 [place] [facility], [address], [address], [place], [place], [id number], 03/26/2022 15:42:51 Trulicity 1.5 mg/0.5 mL subcutane ous pen injector 2022 023 [facility], [address], [address], [place], [place], [id number], 04/20/2024 08:12:06 Patient TargetsNo targets recorded. Patient Instructions Encounter Date Encounter Id Patient Instructions Last Modified By Organization Details Last Modified Time 12/28/2020 [id number] Patient to continue to monitor for recurrence of ulcer and return as necessary. [email or web address] Not available 12/28/2020 09:19:30 03/26/2022 [id number] Well Visit 50 to 65: Care Instructions fortino Not available 03/26/2022 15:42:48 Prostate Cancer Screening [...] life expectancy. Not available 03/26/2022 10:29:28 08/02/2024 [id number] Patient to contact the office if symptoms [...] furth er confi rmati on Not Available [address], [place], [address], 12/05/2020 09:52:06 10/20/20 21 12/05/2020 HGB A1C estimated average glucose 223.1 mg/dL Not Available [address], [address], 12/05/2020 09:52:06 12/06/19 21 12/05/2020 BASIC METAB OLIC PANEL glucose 229 mg/dL 70-100 high Not Available [address], [address], 12/05/2020 14:15:13 12/06/19 21 12/05/2020 BASIC METAB OLIC PANEL BUN 14 mg/dL 7-18 Not Available [address], [address], 12/05/2020 14:15:13 12/06/19 21 12/05/2020 BASIC METAB OLIC PANEL creatinine 1.1 mg/dL 0.8-1. 3 Not Available [address], [address], 12/05/2020 14:15:13 12/06/19 21 12/05/2020 BASIC METAB OLIC PANEL B/C 12.7 ratio Not Available [address], [address], 12/05/2020 14:15:13 12/06/19 21 12/05/2020 BASIC METAB OLIC PANEL GFR 72.8 mL/mi n Recom octavio d GFR by the Natio nal Kidne y Found ation >60 mL/mi n/1.7 3m2 - Darlyn l <60 mL/mi n/1.7 3m2 - Chron ic Kidne y Disea se <15 mL/mi n/1.7 3m2 - Kidne y Failu re Not Available [address], [address], 12/05/2020 14:15:13 12/06/19 21 12/05/2020 BASIC METAB OLIC PANEL sodium 139 mmol/ L 136-14 5 Not Available [address], [address], 12/05/2020 14:15:13 12/06/19 21 12/05/2020 BASIC METAB OLIC PANEL potassium 4.5 mmol/ L 3.5-5. 1 Not Available [address], [address], 12/05/2020 14:15:13 12/06/19 21 12/05/2020 BASIC METAB OLIC PANEL chloride 102 mmol/ L 96-107 Not Available [address], [address], 12/05/2020 14:15:13 12/06/19 21 12/05/2020 BASIC METAB OLIC PANEL anion gap 14.2 5.0-15 .0 Not Available [address], [address], 12/05/2020 14:15:13 12/06/19 21 12/05/2020 BASIC METAB OLIC PANEL CO2 23 mmol/ L 21-32 Not Available [address], [address], 12/05/2020 14:15:13 12/06/19 21 12/05/2020 BASIC METAB OLIC PANEL calcium 9.0 mg/dL 8.5-10 .3 Not Available [address], [address], 12/05/2020 14:15:13 12/06/19 21 12/05/2020 LIPID PANEL cholesterol 138 mg/dL <200 mg/dl Meka able 200-2 39 mg/dl Borde rline High >240 mg/dl High Not Available [address], [address], 12/05/2020 14:15:14 12/06/19 21 12/05/2020 LIPID PANEL triglyceride s 199 mg/dL <150 mg/dL Darlyn l 150-1 99 mg/dL Borde rline High 200-4 99 mg/dL High >500 mg/dL Very High Not Available [address], [address], 12/05/2020 14:15:14 12/06/19 21 12/05/2020 LIPID PANEL direct HDL 36 mg/dL <40 mg/dl - Major Risk for CHD >60 mg/dl - Negat paco Risk for CHD Not Available [address], [address], 12/05/2020 14:15:14 12/06/19 21 12/05/2020 LDL - CALCU LATED LDL - calculated 62.2 RISK CATEG ORY LDL GOAL _ CHD or CHD Risk Equiv alent s <100 mg/dl (10-y ear risk >20%) 2+ Risk Facto rs <130 mg/dl (10-y ear risk <= 20%) 0-1 Risk Facto r <160 mg/dl [facility] all peopl e with 0-1 risk facto r have a 10 year risk <10%, thus 10 year risk asses ment in peopl e with 0-1 risk facto r is not neces lila. Not Available [address], [address], 12/05/2020 14:15:15 03/19/19 23 03/19/2022 HGB A1C [...] furth er confi rmati on Not Available [address], [address], 03/19/2022 09:20:54 03/19/1903/19/2022 HGB A1C estimated average glucose 283.4 mg/dL Not Available [address], [address], 03/19/2022 09:20:54 03/19/19 23 03/19/2022 MICRO ALBUM IN/CR EATIN INE RATIO PANEL , URINE microalbumin 112.1 mg/L 1.3-20 .0 high VERD= Verif ied by Dilut ion. Not Available [address], [address], 03/19/2022 11:59:00 03/19/19 23 03/19/2022 MICRO ALBUM IN/CR EATIN INE RATIO PANEL , URINE creatinine urine 250.8 mg/dL 30.0-1 25.0 high Not Available [address], [address], 03/19/2022 11:59:00 03/19/19 23 03/19/2022 MICRO ALBUM IN/CR EATIN INE RATIO PANEL , URINE microalb/cre at ratio 44.7 mg/g_ creat 0.0-29 .0 high Not Available [address], [address], 03/19/2022 11:59:00 03/19/19 23 03/19/2022 BASIC METAB OLIC PANEL glucose 235 mg/dL 70-100 high Not Available [address], [address], 03/19/2022 12:15:15 03/19/19 23 03/19/2022 BASIC METAB OLIC PANEL BUN 21 mg/dL 7-18 high Not Available [address], [address], 03/19/2022 12:15:15 03/19/19 23 03/19/2022 BASIC METAB OLIC PANEL creatinine 1.2 mg/dL 0.8-1. 3 Not Available [address], [address], 03/19/2022 12:15:15 03/19/19 23 03/19/2022 BASIC METAB OLIC PANEL B/C 17.5 ratio Not Available [address], [address], 03/19/2022 12:15:15 03/19/19 23 03/19/2022 BASIC METAB [...] be used in pregn gloria. Not Available [address], [address], 03/19/2022 12:15:15 03/19/1903/19/2022 BASIC METAB OLIC PANEL sodium 136 mmol/ L 136-14 5 Not Available [address], [address], 03/19/2022 12:15:15 03/19/19 23 03/19/2022 BASIC METAB OLIC PANEL potassium 4.3 mmol/ L 3.5-5. 1 Not Available [address], [address], 03/19/2022 12:15:15 03/19/19 23 03/19/2022 BASIC METAB OLIC PANEL chloride 101 mmol/ L 96-107 Not Available [address], [address], 03/19/2022 12:15:15 03/19/19 23 03/19/2022 BASIC METAB OLIC PANEL anion gap 7.0 5.0-15 .0 Not Available [address], [address], 03/19/2022 12:15:15 03/19/19 23 03/19/2022 BASIC METAB OLIC PANEL CO2 28 mmol/ L 21-32 Not Available [address], [address], 03/19/2022 12:15:15 03/19/19 23 03/19/2022 BASIC METAB OLIC PANEL calcium 9.8 mg/dL 8.5-10 .3 Not Available [address], [address], 03/19/2022 12:15:15 03/19/19 23 03/19/2022 LIPID PANEL cholesterol 240 mg/dL <200 mg/dl Meka able 200-2 39 mg/dl Borde rline High >240 mg/dl High Not Available [address], [address], 03/19/2022 12:15:16 03/19/1903/19/2022 LIPID PANEL triglyceride s 528 mg/dL high LIPS= Speci men Sligh tly Lipem ic. Chem Resul ts may be effec tad. <150 mg/dL Darlyn l 150-1 99 mg/dL Borde rline High 200-4 99 mg/dL High >500 mg/dL Very High Not Available [address], [address], 03/19/2022 12:15:16 03/19/19 23 03/19/2022 LIPID PANEL direct HDL 38 mg/dL <40 mg/dl - Major Risk for CHD >60 mg/dl - Negat paco Risk for CHD Not Available [address], [address], 03/19/2022 12:15:16 03/19/19 23 03/19/2022 DIREC T [...] r is not necdemetria lila. Not Available [address], [address], 03/19/2022 12:44:20 10/18/19 23 10/17/2022 POC GLU POC glu 199 70 - 100 high Not Available [facility] [address] [place] [address], [address], 10/17/2022 10:15:15 07/21/19 25 07/20/2024 HGB A1C hemoglobin A1C 11.0 % 4.8-6. 0 high Goal: <7% in Patie nts with Diabe gk An A1c betwe en 5.7-6 .4% is ident ified as pre-d iabet es and sugge sts risk for progr essio n to diabe kg Two a1c value s of 6.5% or highe r is consi stent with a diagn osis of diabe kg but may need furth er confi rmati on Not Available [address], [address], 07/20/2024 10:25:59 07/21/19 25 07/20/2024 HGB A1C estimated average glucose 269.0 mg/dL Not Available [address], [address], 07/20/2024 10:25:59 07/21/19 25 07/20/2024 BASIC METAB OLIC PANEL glucose 209 mg/dL 70-100 high Not Available [address], [address], 07/20/2024 12:12:56 07/21/1907/20/2024 BASIC METAB OLIC PANEL BUN 19 mg/dL 7-18 high Not Available [address], [address], 07/20/2024 12:12:56 07/21/1907/20/2024 BASIC METAB OLIC PANEL creatinine 1.1 mg/dL 0.8-1. 3 Not Available [address], [address], 07/20/2024 12:12:56 07/21/1907/20/2024 BASIC METAB OLIC PANEL B/C 17.3 ratio Not Available [address], [address], 07/20/2024 12:12:56 07/21/1907/20/2024 BASIC METAB OLIC PANEL [...] be used in pregn gloria. Not Available [address], [address], 07/20/2024 12:12:56 07/21/1907/20/2024 BASIC METAB OLIC PANEL sodium 138 mmol/ L 136-14 5 Not Available [address], [address], 07/20/2024 12:12:56 07/21/1907/20/2024 BASIC METAB OLIC PANEL potassium 4.5 mmol/ L 3.5-5. 1 Not Available [address], [address], 07/20/2024 12:12:56 07/21/19 25 07/20/2024 BASIC METAB OLIC PANEL chloride 102 mmol/ L 96-107 Not Available [address], [address], 07/20/2024 12:12:56 07/21/1907/20/2024 BASIC METAB OLIC PANEL anion gap 10.4 5.0-15 .0 Not Available [address], [address], 07/20/2024 12:12:56 07/21/1907/20/2024 BASIC METAB OLIC PANEL CO2 26 mmol/ L 21-32 Not Available [address], [address], 07/20/2024 12:12:56 07/21/1907/20/2024 BASIC METAB OLIC PANEL calcium 9.4 mg/dL 8.5-10 .3 Not Available [address], [address], 07/20/2024 12:12:56 07/21/1907/20/2024 LIPID PANEL cholesterol 161 mg/dL <200 mg/dl Meka able 200-2 39 mg/dl Borde rline High >240 mg/dl High Not Available [address], [address], 07/20/2024 12:12:57 07/21/19 25 07/20/2024 LIPID PANEL triglyceride s 228 mg/dL <150 mg/dL Darlyn l 150-1 99 mg/dL Borde rline High 200-4 99 mg/dL High >500 mg/dL Very High Not Available [address], [address], 07/20/2024 12:12:57 07/21/1907/20/2024 LIPID PANEL direct HDL 39 mg/dL <40 mg/dl - Major Risk for CHD >60 mg/dl - Negat paco Risk for CHD Not Available [address], [address], 07/20/2024 12:12:57 07/21/1907/20/2024 LDL - CALCU LATED [...] r is not neces lila. Not Available [address], [address], 07/20/2024 12:12:58 03/26/1903/26/2022 XR, chest CLINIC AL [...] Readin g Physic sasha: Amaury Fox ms [facility] (Imaging) [address], [place], [address], 03/27/2022 09:09:26 04/09/19 23 04/08/2022 exerc ise stres s test No observ ation record ed. LILLY [facility] [address] [place], [address], 2022 07:17:01 10/30/19 23 04/30/2022 , echoc ardio gram No observ ation record ed. LILLY Tran [facility] - Stat [address] [place], [address], 11/02/2022 14:27:52 Result Notes None recorded. Procedures Surgical History Date Name Laterality Status Provider Name and Address Organization Details Recorded Time 3 Gopi - Colonoscopy completed Nabeel Nguyễn MD [address] [place] [address], [id number], [facility] 10/17/2022 11:17:50 Imaging Results None recorded. Procedure Notes None recorded. Medical Equipment None Reported. Allergies Allergen ID Allergen Name Allergen Category Reaction Reaction Severity Criticality Documentation Date Start Date Code Code System Note Provider Name and Address Organization Details Recorded Time [id number] Zestril medicatio n cough Not available Not available 10/15/2022 2 RxNorm Kiara lee RN [facility], [facility] 3 15:57:53 Medications Name Sig Start Date [...] not available 02/27/2015 Marital Status [facility]= [facility]( [facility] 2017 [facility] Information not available 06/03/2013 Mosquito Repellent Used Routinely Yes Information not available 09/01/2014 What Was The Date Of Your Most Recent Tobacco Screening? 07/27/2024 Information not available 07/27/2024 How Many Children Do You Have? 2 Jada(25- (son{g-son} Fran Ceja, Dawit-dtr), Gilles -Spina Bifida- Does Sled Hockey( 25,17) [facility] Information not available 06/03/2013 What Is Your Relationship Status? Nancy 2019 [place] Information not available 03/26/2022 Seat Belts Used Routinely Yes Information not available 09/01/2014 Smoke Alarm In Home Yes Information not available 09/01/2014 How Much Tobacco Do You Smoke? No [email or web address] Information not available 04/23/2020 General Stress Level [...] used smokeless tobacco? 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 [employer] Information not available 12/09/2017 Do you or have you ever used e-cigarettes or vape? Never used electronic cigarettes Information not available 04/23/2020 Mental Status None recorded. Family History Relationship Description Onset Age of this Age Resolved Age Notes LastModified by Organization Details LastModified Time Brother Benign hypertension [facility] Not available 14:29:52 Mother Diabetes mellitus [facility] Not available 2013 14:29:52 Mother Malignant tumor of breast [facility] Not available 2013 14:29:52 Mother Interstitial lung disease [facility] Not available 14:29:52 Father Myocardial infarction [facility] Not available 06/03 14:29:52 Father Diabetes mellitus [facility] Not available 2013 14:29:52 Son Spina bifida Gilles [facility] Not avai labmike 10/03/2020 16:58:12 Medical History Condition Response Diabetes Type II Y Colon Polyps Y HEMATOLOGIC Y Hypertension Y Past Encounters Encounter ID Performer Location Encounter Start Date Encounter Closed Date Diagnosis/Indication Diagnosis SNOMED-CT Code Diagnosis ICD10 Code Diagnosis Note [id number] Katja Ellis MD , [facility], OFFICE [address] [place] [address] [place] [address] 06/03/2013 13:32:13 06/03/2013 14:44:02 [id number] Katja Ellis MD , [facility], OFFICE [address] [facility] [place] [address] 07/01/2013 14:39:27 07/01/2013 15:21:14 [id number] Katja Ellis MD , [facility], OFFICE [address] [place] [address] [place] [address] 07/29/2013 15:10:03 07/29/2013 15:40:01 [id number] Katja Ellis MD , [facility], OFFICE [address] [facility] [place] [address] 09/07/2013 15:48:48 09/07/2013 16:39:09 [id number] Katja Ellis MD , [facility], OFFICE [address] [place] [address] [place] [address] 10/25/2013 15:40:42 10/25/2013 16:23:22 [id number] Katja Ellis MD , [facility], OFFICE [address] [place] [address] 09/01/2014 07:56:31 09/01/2014 09:15:36 [id number] Nabeel Nguyễn MD [facility], [address] [address] 12/05/2014 08:25:55 12/05/2014 13:30:05 [id number] Katja Ellis MD , [facility], OFFICE [address] [place] [address] [place] [address] 02/21/2015 08:08:59 02/21/2015 08:52:46 [id number] Adamaris Vanegas RN, BSN, [facility] , [facility] [address] [place] [facility] [address] 02/27/2015 09:50:33 02/27/2015 10:53:09 [id number] Alycia Garcia , [facility] OFF[facility] [address] [facility] [place] [facility] [place] [address] 06/06/2015 09:46:48 06/06/2015 11:25:04 [id number] Adalberto Meyer MD , [facility], OFFICE [address] [facility] [place] [facility] [address] 06/07/2015 16:49:48 06/08/2015 08:36:13 [id number] Katja Ellis MD , [facility], OFFICE [address] [place] [address] [place] [address] 12/10/2016 16:18:39 12/11/2016 10:53:09 [id number] Katja Ellis MD , [facility], OFFICE [address] [place] [address] [place] [address] 09/09/2017 14:57:30 09/09/2017 15:52:28 [id number] Katja Ellis MD , [facility], OFFICE [address] [place] [address] [place] [address] 12/09/2017 15:56:53 12/09/2017 16:31:15 [id number] Katja Ellis MD , [facility], OFFICE [address] [place] [address] [place] [address] 09/10/2018 13:21:12 09/10/2018 14:21:34 [id number] Esdras Garg MD , [facility], OFFICE [address] [place] [address] 12/24/2019 10:16:31 12/26/2019 10:11:48 [id number] Katja Ellis MD , [facility], OFFICE [address] [place] [address] [place] [address] 03/30/2020 13:40:11 03/30/2020 16:30:40 [id number] MD HARMONY Prasad, [facility], OFFICE [address] [place] [address] [place] [address] 04/23/2020 09:55:53 04/25/2020 11:05:12 [id number] Katja Ellis MD , [facility], OFFICE [address] [place] [address] 06/27/2020 07:49:47 06/27/2020 08:46:30 [id number] Álvaro Benitez DPM Podiatry, [facility] [address] [place] [address] 07/05/2020 08:03:53 07/23/2020 10:54:06 [id number] NAA CarballoM Podiatry, [address] [address] 07/09/2020 10:03:46 07/09/2020 10:31:28 [id number] Álvaro Benitez DPM Podiatry, [address] [address] 08/03/2020 10:43:34 08/03/2020 11:24:38 [id number] Álvaro Benitez DPM Podiatry, [address] [address] 08/27/2020 10:11:58 08/27/2020 11:03:20 [id number] Katja Ellis MD , [facility], OFFICE [address] [place] [address] 10/03/2020 16:16:24 10/03/2020 17:07:21 [id number] Álvaro Benitez DPM Podiatry, [address] [address] 10/12/2020 09:30:33 10/12/2020 16:51:58 [id number] Katja Ellis MD , [facility], OFFICE [address] [place] [address] 12/19/2020 14:39:25 12/25/2020 10:03:43 [id number] Alexis Santana MD Podiatry, [address] [address] 12/28/2020 09:12:07 12/28/2020 10:01:07 [id number] MD HARMONY Prasad, [facility], OFFICE [address] [place] [address] 03/26/2022 14:44:50 03/26/2022 15:47:28 [id number] Nabeel Nguyễn MD Endoscopy , [facility] [address] [place] [address] 10/17/2022 09:52:51 10/17/2022 13:31:32 [id number] Katja Ellis MD , [facility], OFFICE [address] [place] [address] 04/20/2024 07:43:01 04/20/2024 08:35:40 [id number] Katja Ellis MD , [facility], OFFICE [address] [place] [address] 07/27/2024 10:41:44 07/27/2024 11:22:22 [id number] Jennifer Judd MD Podiatry, [address] [address] 08/02/2024 09:18:29 08/02/2024 10:30:33 Health Concerns Section Related Observation LastModified by Organization Detai ls LastModified Time None Recorded Concern Status LastModified by Organization Details LastModified Time None Recorded Advance Directives Directive None Recorded Payers Insurance Date Sequence Insurance Name Policy Number Policy Finney Covered Member ID Finney Member ID Guarantor Name 12/24/[address] [facility] ([facility]) [id number] Tray Viet Leonides [id number] Tray Coyle 12/24/[address] [facility] [facility] [id number] Tray Viet Leonides [id number] Tray Coyle 08/02/2024 1 [facility] [id number] Tray Coyle [id number] Tray Coyle
--- NOTE | 2024-09-09 10:14 | HO.ANESPROP2 ---
HPI - Anesthesia Eval Consult details Narrative: 64 yr old male for right Cataract Extraction IOL Insertion Type 2 DM: on insulin, metformin, GLP-1 Anesthesia Pre-Procedure Meds Is the patient on any of the following meds?: GLP1/DPP4 [facility] Past Medical History Medical History (Updated 08/23/24 @ 14:31 by Michelle Cheema RN) Family history of anesthesia complication Mild aortic stenosis HTN (hypertension) Elevated cholesterol Diabetes Family History Family history of problems with anesthesia: No Surgical History Surgical History (Updated 08/23/24 @ 14:31 by Michelle Cheema RN) H/O colonoscopy Hx of tonsillectomy Hx of vasectomy Hx of arthroscopic knee surgery Hx of appendectomy History of Problems with Anesthesia: No Social History Social History Are you a primary career consultant to a significant other at home: No Do you presently have visiting nurse or other home services: No Patient Tobacco Use Status: Never used Tobacco Use of substances other than those prescribed or required for medical reasons: No Have you been hit, kicked, punched, or otherwise hurt by someone within the past year? If so, by whom?: No Spiritual Healthcare Practices: no Hoahaoism Healthcare Practices: no Cultural Healthcare Practices: no Are you DNR?: No Advance Directives Information Provided: Yes (as above noted) Advance Directives on File: No Poor oral hygiene: No Meds Allergies Allergy/AdvReac Type Severity Reaction Status Date / Time lisinopril (From Zestril) Allergy Intermediate Cough Verified 08/29/24 06:57 Home Medications ?Medication ?Instructions ?Recorded ?Confirmed ?Last Taken ?Type atenolol 50 mg tablet 50 mg PO DAILY 08/23/24 08/23/24 Unknown History atorvastatin 40 mg tablet 40 mg PO DAILY 08/23/24 08/23/24 Unknown History dulaglutide 4.5 mg/0.5 mL 4.5 mg subcut QWEEK 08/23/24 08/23/24 08/21/24 History subcutaneous pen injector (Trulicity) insulin lispro protamine-lispro 40 unit subcut QPM 08/23/24 08/23/24 Unknown History 100 unit/mL (75-25) subcutaneous pen (Humalog Mix 75-25 KwikPen) insulin lispro protamine-lispro 60 unit subcut QAM 08/23/24 08/23/24 Unknown History 100 unit/mL (75-25) subcutaneous pen (Humalog Mix 75-25 KwikPen) metformin 500 mg tablet 1,000 mg PO BID 08/23/24 08/23/24 Unknown History Exam Height,Weight and Vital Signs: Height 6 ft 2 in Weight 114.1 kg Assessment and Plan Final Anesthetic Review Family History of Problems with Anesthesia: No History of Problems with Anesthesia: No
--- NOTE | 2024-09-12 07:24 | MHC.SHP ---
Pre-Procedural Eval Section A - 24 Hr Update-Section A only Date of Service: 09/12/24 The patient is an INPATIENT: No Changes since office visit: No Cold of Flu in the past 2 weeks, No New Medical Problems, No Changes in Medication and No Patient answered all questions The patient has been examined within 24 hours of the surgical procedure. The History & Physical has been completed within 30 days and I have reviewed it.: Yes Section B - Complete if H&P > 30 days Chief Complaint: Age-related nuclear cataract, right eye Allergies: Allergies Allergy/AdvReac Type Severity Reaction Status Date / Time lisinopril (From Zestril) Allergy Intermediate Cough Verified 08/29/24 06:57 Plan Diagnosis/Plan: Unchanged I have reviewed the history and physical and performed a pertinent physical examination on my patient. No changes have occurred unless specified. Time Spent With Patient Time: Total time managing care of this patient today ____ minutes.
--- NOTE | 2024-10-07 13:53 | HO.ANESPROP2 ---
Documented by User: Nidia Martini NP 10/07/24 13:54 HPI - Anesthesia Eval Consult details Narrative: 64 yr old male for rigth cataract extraction IOL insertion 2nd eye Type 2 DM: on insulin, metformin, GLP-1 Anesthesia Pre-Procedure Meds Is the patient on any of the following meds?: GLP1/DPP4 PMFSH Past Medical History Medical History Family history of anesthesia complication Mild aortic stenosis HTN (hypertension) Elevated cholesterol Diabetes Family History Family history of problems with anesthesia: No Surgical History Surgical History Hx of left cataract extraction H/O colonoscopy Hx of tonsillectomy Hx of vasectomy Hx of arthroscopic knee surgery Hx of appendectomy History of Problems with Anesthesia: No Social History Social History Are you a primary adult day care worker to a significant other at home: No Do you presently have visiting nurse or other home services: No Patient Tobacco Use Status: Never used Tobacco Use of substances other than those prescribed or required for medical reasons: No Have you been hit, kicked, punched, or otherwise hurt by someone within the past year? If so, by whom?: No Spiritual Healthcare Practices: no Sabianism Healthcare Practices: no Cultural Healthcare Practices: no Are you DNR?: No Advance Directives Information Provided: Yes (as above noted) Advance Directives on File: No Poor oral hygiene: No Meds Allergies Allergy/AdvReac Type Severity Reaction Status Date / Time lisinopril (From Zestril) Allergy Intermediate Cough Verified 10/10/24 07:16 Home Medications ?Medication ?Instructions ?Recorded ?Confirmed ?Last Taken ?Type atenolol 50 mg tablet 50 mg PO DAILY 08/23/24 08/23/24 10/10/24 History atorvastatin 40 mg tablet 40 mg PO DAILY 08/23/24 08/23/24 Unknown History dulaglutide 4.5 mg/0.5 mL 4.5 mg subcut QWEEK 08/23/24 08/23/24 10/02/24 History subcutaneous pen injector (Trulicity) insulin lispro protamine-lispro 40 unit subcut QPM 08/23/24 08/23/24 Unknown History 100 unit/mL (75-25) subcutaneous pen (Humalog Mix 75-25 KwikPen) insulin lispro protamine-lispro 60 unit subcut QAM 08/23/24 08/23/24 Unknown History 100 unit/mL (75-25) subcutaneous pen (Humalog Mix 75-25 KwikPen) metformin 500 mg tablet 1,000 mg PO BID 08/23/24 08/23/24 Unknown History Exam Height,Weight and Vital Signs: Height 6 ft 2 in Weight 114.1 kg Assessment and Plan Final Anesthetic Review Family History of Problems with Anesthesia: No History of Problems with Anesthesia: No Documented by User: Amanda Olsen MD 10/10/24 09:11 [facility] Past Medical History Medical History Family history of anesthesia complication Mild aortic stenosis HTN (hypertension) Elevated cholesterol Diabetes Surgical History Surgical History Hx of left cataract extraction H/O colonoscopy Hx of tonsillectomy Hx of vasectomy Hx of arthroscopic knee surgery Hx of appendectomy Social History Social History Are you a primary adult day care worker to a significant other at home: No Do you presently have visiting nurse or other home services: No Patient Tobacco Use Status: Never used Tobacco Use of substances other than those prescribed or required for medical reasons: No Have you been hit, kicked, punched, or otherwise hurt by someone within the past year? If so, by whom?: No Spiritual Healthcare Practices: no Sabianism Healthcare Practices: no Cultural Healthcare Practices: no Are you DNR?: No Advance Directives Information Provided: Yes (as above noted) Advance Directives on File: No Poor oral hygiene: No Meds Allergies Allergy/AdvReac Type Severity Reaction Status Date / Time lisinopril (From Zestril) Allergy Intermediate Cough Verified 10/10/24 07:16 Home Medications ?Medication ?Instructions ?Recorded ?Confirmed ?Last Taken ?Type atenolol 50 mg tablet 50 mg PO DAILY 08/23/24 08/23/24 10/10/24 History atorvastatin 40 mg tablet 40 mg PO DAILY 08/23/24 08/23/24 Unknown History dulaglutide 4.5 mg/0.5 mL 4.5 mg subcut QWEEK 08/23/24 08/23/24 10/02/24 History subcutaneous pen injector (Trulicity) insulin lispro protamine-lispro 40 unit subcut QPM 08/23/24 08/23/24 Unknown History 100 unit/mL (75-25) subcutaneous pen (Humalog Mix 75-25 KwikPen) insulin lispro protamine-lispro 60 unit subcut QAM 08/23/24 08/23/24 Unknown History 100 unit/mL (75-25) subcutaneous pen (Humalog Mix 75-25 KwikPen) metformin 500 mg tablet 1,000 mg PO BID 08/23/24 08/23/24 Unknown History Exam Airway Mallampati Class: II TM Dist: >3cm Neck ROM: Full Heart: rrr Lungs: cta Assessment and Plan Assessment Anesthesia Assessment: Anesthesia Plan Discussed and Chart Reviewed Final Anesthetic Review NPO: Yes ASA Class: III Final Preanesthetic Review: No Changes in Pt Med Stat, Meds/Allgs Chart Reviewed, Consent Obtained/Reviewed and Anes Risks/Benef Reviewed Patient Risk: Intermediate Procedure Risk: Low Anesthetic Plan Anesthetic Plan: MAC: and Agree w/ Assess. and Plan Disposition: Standard PACU
[2024-10-10] MEDS: Lactated Ringers 500 ML 50 ML IV (07:11)
[2024-10-10] MEDS: Tetracaine HCl/PF 0.5% Oph Sol 4 ML DROPS 1 DROP EYE-RIGHT (07:12)
[2024-10-10] MEDS: Phenylephrine HCL 2.5% Oph SoL 2 ML BOTTLE 1 DROP EYE-RIGHT ×3 (07:12→07:22)
[2024-10-10] MEDS: Cyclopentolate 1 % Ophth Sol 2 ML DRPBTL 1 DROP EYE-RIGHT ×3 (07:12→07:23)
[2024-10-10] MEDS: Ketorolac Tromethamine 0.5% Op 5 ML DROPS 1 DROP EYE-RIGHT ×3 (07:12→07:23)
[2024-10-10] MEDS: Tropicamide 1 % Ophth Sol 3 ML BTL 1 DROP EYE-RIGHT ×3 (07:13→07:23)
[2024-10-10 07:14] VITALS: BP 116/72; PULSE 84; RESP 18; TEMP 36.6; O2SAT 98
[2024-10-10 07:28] LABS: Glucose, Whole Blood 87 mg/dL (60-115)
--- NOTE | 2024-10-10 09:26 | MHC.SHP ---
Pre-Procedural Eval Section A - 24 Hr Update-Section A only Date of Service: 10/10/24 The patient is an INPATIENT: No Changes since office visit: Yes Patient answered all questions; No Cold of Flu in the past 2 weeks, No New Medical Problems and No Changes in Medication The patient has been examined within 24 hours of the surgical procedure. The History & Physical has been completed within 30 days and I have reviewed it.: Yes Section B - Complete if H&P > 30 days Chief Complaint: Age-related nuclear cataract, right eye Allergies: Allergies Allergy/AdvReac Type Severity Reaction Status Date / Time lisinopril (From Zestril) Allergy Intermediate Cough Verified 10/10/24 07:16 Plan Diagnosis/Plan: Unchanged I have reviewed the history and physical and performed a pertinent physical examination on my patient. No changes have occurred unless specified. Time Spent With Patient Time: Total time managing care of this patient today ____ minutes.
--- NOTE | 2024-10-10 09:27 | P.PCNO_ITS ---
Ophthalmology Procedure Procedure Date of Service: 10/10/24 Ophthalmology Viscoelastic: Healon Duet Dual Pack Pro Ophthalmology Lenses: IOL Acrysof MP - [id number] (24) Procedure Notes: PREOPERATIVE DIAGNOSIS: Decreased visual acuity right eye secondary to cataract POSTOPERATIVE DIAGNOSIS: Same PROCEDURE: Right cataract extraction with intraocular lens insertion SURGEON: Pro Serrano M.D. ANESTHESIA: Topical/MAC ESTIMATED BLOOD LOSS: None COMPLICATIONS: None After obtaining informed consent, the patient was brought to the operating room suite and placed in the supine position. After adequate sedation per anesthesia, topical drops of Tetracaine were given to the right eye. The eye was then prepped and draped in the usual sterile fashion. The operating room microscope was then positioned over the operative eye and a lid speculum placed. A paracentesis was created. Viscoelastic was then instilled into the anterior chamber. A three plane incision was then created temporally, utilizing a 2.85 mm keratome. Capsulotomy forceps were then utilized to create a circular tear capsulotomy. Hydrodissection and hydrodelineation were carried out until adequate mobilization of the nucleus occurred. Phacoemulsification was then utilized to remove the dense central nucl eus followed by removal of the cortical material utilizing the automated aspiration irrigation unit. Viscoelastic was instilled into the posterior capsular bag followed by placement of a posterior chamber intraocular lens without difficulty. The residual Viscoelastic was then removed utilizing the automated IA machine. The wound was checked and found to be watertight. The patient tolerated the procedure well and the lid speculum was removed. Intracameral injection of Vigamox 0.1 mL followed by a subtenon injection of Kenalog-40 0.2 mL were administered. The patient will be seen in the a.m.
[2024-10-10 10:10] VITALS: BP 125/63; PULSE 80; RESP 18; TEMP 36.2; O2SAT 99
== END 2024-10-10 10:10 | disposition home or self-care (01) ==
PROVIDERS: PCP Family Medicine; Visit Provider Ophthalmology
PROC: (CPT 66985; principal; 2024-10-10 09:00)
DX: H25.11 Age-related nuclear cataract, right eye (principal); H52.4 Presbyopia; Z83.511 Family history of glaucoma; H18.413 Arcus senilis, bilateral; H11.153 Pinguecula, bilateral; H35.033 Hypertensive retinopathy, bilateral; I10 Essential (primary) hypertension; E11.9 Type 2 diabetes mellitus without complications; I35.0 Nonrheumatic aortic (valve) stenosis; Z79.4 Long term (current) use of insulin; Z79.84 Long term (current) use of oral hypoglycemic drugs; Z79.85 Long-term (current) use of injectable non-insulin antidiabetic drugs; Z79.899 Other long term (current) drug therapy; Z88.8 Allergy status to other drugs, medicaments and biological substances
CPT/HCPCS: 66984; 82947; J2250; J3010; J3301; V2630